=== PATIENT | female | born 1975 ===

== ENCOUNTER 2025-03-17 10:45 | Outpatient (RCR) | payer OTHER, SELFPAY ==
[2025-03-06 12:00] VITALS: BP 154/84
[2025-03-06 14:51] VITALS: BMI 26.1
--- NOTE | 2025-03-06 15:18 | PC.ADMIT ---
Patient is a 49 year old female who is newly from her of 30 years. Patient reports she had an affair with her neighbor and her is not able to deal with this. Patient stated she is in the process of divorce as her served her divorce papers. She is currently staying with her brother whom she stated is supportive. Patient is alert and oriented x4. She is calm and cooperative. She presented with depressed mood and affect. She denied SI. No HI. She was given a copy of her safety plan if needed. Medications updated with patient and patient's pharmacy. Reports history of being prescribed Naltrexone for alcohol cravings however reports she is unable to tolerate this secondary to c/o nausea. Regarding alcohol use patient stated she started drinking in November 2024 and her drinking increased to daily drinking throughout the day drinking Vodka or Whiskey. Stated she went inpatient and has not drank since then. Stated when she was inpatient she had some alcohol withdrawal sxs including tremors. Patient denied current use of alcohol. Last reports drinking alcohol on 02/05/25. Patient's BP 154/88. Patient reports history of hypertension and she reports being on an hypertensive medication in the past. No tremulousness, no diaphoresis, no nausea, no vomiting. She is alert and oriented x4. She was educated about the dangers of stopping alcohol use abruptly without medical treatment.
--- NOTE | 2025-03-06 23:09 | P.HPPSP_ITS ---
HPI Date of Service: 03/06/25 Chief Complaint: PTSD Sources of Information: patient interviewed, chart reviewed and crisis/core team assessment reviewed HPI Narrative: Patient is a 49-year-old female who is being referred as a step-down from [facility] for acute SI in the context of marital stressors in having to disclose an extramarital affair to her . She was discharged from [facility] 2 weeks ago with unspecified mood disorder, a UD, PTSD. In the hospital she was continued on sertraline started on Abilify and hydroxyzine. Last week she was seen by her outpatient provider who also started her on lamotrigine 25 mg and prazosin 1 mg. She reports overall she is feeling calmer and a little more grounded since the hospitalization. She relays a history of possible manic episode over the summer which led to a lot of impulsive and erratic behavior from which patient is still trying to process and says she is truly confused by her actions as she and her have had a solid relationship and has never wanted to be involved with others outside of the marriage. She also relays issues with alcohol since May which burdened into a daily drinking habit by November she also struggled with compulsive spending. This caused considerable amount of disruption to her family and her children for the time being she is staying outside the house. Have started into the process of divorce but she feels that she and her are at least working on communication and seem to be supporting 1 another. She denies any SI, HI, AVH. Sleep, appetite energy intact. Past Psychiatric History: [facility] x1: [facility] 02/2025 No previous PHP IOP detox or respite admissions [facility] Medical History (Updated 03/07/25 @ 00:27 by Shante John MD) delivery delivered Anemia Fatty liver Headache Surgical History (Updated 03/06/25 @ 12:54 by Rosibel Coto RN) H/O gastric sleeve Diagnostics Vital Signs (24Hr): Vital Signs - 24 hr 03/06/25 12:00 Blood Pressure 154/84 H BMI result Body Mass Index 26.1 Meds/Allergies Meds Home Medications ?Medication ?Instructions ?Recorded ?Confirmed ?Type aripiprazole 5 mg tablet 5 mg PO BEDTIME 03/06/25 History hydroxyzine pamoate 50 mg capsule 50 mg PO BEDTIME 03/06/25 History lamotrigine 25 mg tablet (Lamictal) See Rx Instruction s .Route .COMPLEX 03/06/25 03/06/25 History naltrexone 50 mg tablet See Rx Instructions .Route . COMPLEX 03/06/25 03/06/25 History norethindrone acetate 5 mg tablet 5 mg PO DAILY 03/06/25 History prazosin 1 mg capsule 1 mg PO BEDTIME 03/06/25 History sertraline 100 mg tablet 100 mg PO QAM 03/06/2503/06 History sertraline 50 mg tablet 50 mg PO QAM 03/06/25 History Allergies Allergies Allergy/AdvReac Type Severity Reaction Status Date / Time Sulfa (Sulfonamide Allergy Unknown Rash Unverified 03/06/25 11:48 Antibiotics) (SULFA (SULFONAMIDE ANTIBIOTICS)) Mental Status Exam Mental Status Exam Narrative: Alert, oriented, in no acute distress. Calm, cooperative, engaged. No psychomotor agitation or neurovegetative retardation. Eye contact maintained. Mood depressed, affect constricted. Speech normal. Thought process linear, coherent. Thought content related to stressors, transient hopelessness, denies SI or HI. No paranoia or delusional content elicited. No evidence of psychosis. Insight and judgment - fair but adequate. Telehealth Telehealth Telehealth Platform: Other (please specify) ([employer] on original products) Location of provider rendering services: other (private office) Location of patient: other ([facility]) Patient Identification confirmed using: Name, : Yes Telehealth method: video Patient verbally consented to treatment: Yes Minutes spent on Phone/Video with Pt.: 60 Assessment & Plan Assessment & Plan (1) Bipolar II disorder: Status: Acute Code(s): F31.81 - Bipolar II disorder (2) Alcohol use disorder, moderate, in early remission: Status: Acute Code(s): F10.21 - Alcohol dependence, in remission (3) PTSD (post-traumatic stress disorder): Status: Acute Code(s): F43.10 - Post-traumatic stress disorder, unspecified Plan Admit to PHP VS reviewed: afebrile, BP 154/84;? bpm start hydroxyzine 10 mg take up to 30 mg TID prn anxiety continue hydroyxzine 50 mg qhs prn sleep continue lamotrigine 25 mg qd (increase dose to 50 mg next week) continue Zoloft 150 mg qd (will likely lower vs taper dose) continue Abilify 5 mg qd (will likely increase dose) continue regular medications for now Routine lab work as indicated EKG, routine for baseline QTc for medication considerations as indicated UDS as indicated [facility] reviewed Continue to monitor as per protocol Patient educated on: diagnosis, medication risk/benefits and substance abuse Informed Consent: understands Reason for continued partial hosp. stay Substantial Risk for: inability to function and med/psych decompensation Certification I certify that partial hospital treatment is medically necessary due to the symptoms and problems resulting from the patient's mental illness and the failure to treat the patient at the partial hospital level of care would likely result in the patient requiring inpatient psychiatric care which could not be prevented at a less intensive level of care. Time Spent With Patient Time: Total time managing care of this patient today _60___ minutes.
[2025-03-09 11:58] VITALS: BP 142/80; PULSE 60
--- NOTE | 2025-03-09 14:56 | HO.PHP ---
Clients case was opened and reviewed in teams.
--- NOTE | 2025-03-15 08:40 | HO.PHP ---
PHP admin, Corine informed the team that Sylvia will not be in attendance to program today due to being sick.
--- NOTE | 2025-03-17 13:09 | HO.PHPPROGNO ---
Subjective Subjective Date of Service: 03/17/25 Reason For Visit: PTSD Interim History: From admission note: Patient is a 49-year-old female who is being referred as a step-down from [facility] for acute SI in the context of marital stressors in having to disclose an extramarital affair to her . She was discharged from [facility] 2 weeks ago with unspecified mood disorder, a UD, PTSD. In the hospital she was continued on sertraline started on Abilify and hydroxyzine. Last week she was seen by her outpatient provider who also started her on lamotrigine 25 mg and prazosin 1 mg. She reports overall she is feeling calmer and a little more grounded since the hospitalization. She relays a history of possible manic episode over the summer which led to a lot of impulsive and erratic behavior from which patient is still trying to process and says she is truly confused by her actions as she and her have had a solid relationship and has never wanted to be involved with others outside of the marriage. She also relays issues with alcohol since May which burdened into a daily drinking habit by November she also struggled with compulsive spending. This caused considerable amount of disruption to her family and her children for the time being she is staying outside the house. Have started into the process of divorce but she feels that she and her are at least working on communication and seem to be supporting 1 another. She denies any SI, HI, AVH. Sleep, appetite energy intact. Past Psychiatric History: [facility] x1: I 02/2025 No previous PHP IOP detox or respite admissions [facility] at finish the 2 weeks of partial hospital program which she found to be quite helpful. Current medications were individually reviewed and she will maintain them through her prescriber at in were she also sees a therapist No SI. Review of Systems Review of Systems Yes all other systems are reviewed and are negative Mental Status Exam Mental Status Exam Patient Appearance: Well Grooomed Patient Orientation: Person, Place, Time and Situation Level of Consciousness: Awake and Appropriate Patient Behavior: Appropriate Mood Description: Calm Affect Description: Calm and Cheerful Patient Cognition Impaired: No Ability to Follow Directions: Excellent Speech Pattern: Clear Memory Description: Intact Hallucinations: None Delusions: Not Present Perceptual Disturbances: Depersonalization Thought Process: Intact Thought Content: positive for Intact Depressive Symptoms: Thoughts of /Suicide (None) Judgement: Good Diagnostics Vital Signs (24Hr): BMI result Body Mass Index 26.1 Assessment & Plan Certification I certify that partial hospital treatment is medically necessary due to the symptoms and problems resulting from the patient's mental illness and the failure to treat the patient at the partial hospital level of care would likely result in the patient requiring inpatient psychiatric care which could not be prevented at a less intensive level of care. Total time managing care of this patient today ____ minutes. Discharge Plan Discharge Attending provider: Shante John Medications: New hydroxyzine HCl 10 mg tablet 10 mg PO TID PRN (Reason: anxiety) Qty: 30 0RF Continued prazosin 1 mg capsule 1 mg PO BEDTIME sertraline 100 mg tablet 100 mg PO QAM Rx Instructions: Take 1 tablet by mouth every morning TAKE WITH 50MG TABLET FOR TOTAL DOSE OF 150MG hydroxyzine pamoate 50 mg capsule 50 mg PO BEDTIME lamotrigine [Lamictal] 25 mg tablet See Rx Instructions .ROUTE .COMPLEX Rx Instructions: Take 1 tablet by mouth every morning TAKE ONE TAB FOR 2 WEEKS THEN INCREASE TO TWO TABS FOR TWO WEEKS norethindrone acetate 5 mg tablet 5 mg PO DAILY sertraline 50 mg tablet 50 mg PO QAM Rx Instructions: Take 1 tablet by mouth every morning TAKE WITH 100MG TAB FOR A TOTAL DOSE OF 150MG aripiprazole 5 mg tablet 5 mg PO BEDTIME No Action naltrexone 50 mg tablet See Rx Instructions .ROUTE .COMPLEX Rx Instructions: PATIENT STATED SHE IS NOT TAKING THIS D/T NAUSEA. Print Language: French
== END 2025-03-17 23:59 | disposition home or self-care (01) ==
LOC: HO.PHPA 10:45
PROVIDERS: Visit Provider Psychiatry & Neurology Psychiatry
DX: F31.81 Bipolar II disorder (principal); F43.10 Post-traumatic stress disorder, unspecified; F10.21 Alcohol dependence, in remission; Z79.899 Other long term (current) drug therapy
CPT/HCPCS: 90791; 90853